=== PATIENT | male | born 2000 | race Two or more races ===

== ENCOUNTER 2025-04-09 15:07 | Emergency (ER) | payer OTHER ==
[~2025-04-09] VITALS: Ht 177.8 cm; Wt 95.0 kg
[2025-04-09 16:13] VITALS: BP 123/86; PULSE 80; RESP 18; TEMP 99; O2SAT 100
[2025-04-09 17:27] LABS: PLATELET COUNT (AUTO) 287 K/uL (150-450); RED BLOOD CELL COUNT(AUTO) 5.15 MIL/uL (4.50-5.90); RED CELL DISTRIBUTION WIDTH 13.9 % (11.5-14.5); WHITE BLOOD COUNT (AUTO) 7.1 K/uL (4.5-11.0)
[2025-04-09 17:28] LABS: CALCIUM, TOTAL 8.8 mg/dL (8.8-10.5); CREATININE 1.08 mg/dL (0.60-1.30); ERYTHROCYTE SEDIMENTATION RATE 83 MM/HR (0-15); GLOMERULAR FILTR. RATE CALC > 60 mL/min (>60); GLUCOSE,RANDOM 97 mg/dL (70-110); SODIUM SERUM 137 mmol/L (136-145); UREA NITROGEN, BLOOD 11 mg/dL (7-18)
[2025-04-09 17:29] LABS: C-REACTIVE PROTEIN QUANT 0.31 mg/dL (0.00-0.30)
== END 2025-04-09 19:48 ==
LOC: EMS 15:07
DX: B35.3 Tinea pedis (principal)
CPT/HCPCS: 80048; 84145; 85025; 85651; 86140; 99284